=== PATIENT | female | born 1975 | race Caucasian/White ===

== ENCOUNTER 2016-04-28 16:17 | Emergency (ER) | payer OTHER ==
[2016-04-28 16:57] LABS: BILIRUBIN NEGATIVE (NEGATIVE); BLOOD TRACE-INTACT Ery/uL (NEGATIVE); CLARITY CLEAR (CLEAR); COLOR STRAW (YELLOW); GLUCOSE (U) 3+ mg/dL (NORMAL); KETONE (U) NEGATIVE (NEGATIVE); LEUKOCYTES NEGATIVE Leu/uL (NEGATIVE); NITRITE NEGATIVE (NEGATIVE); PROTEIN NEGATIVE (NEGATIVE); UROBILINOGEN 0.2 mg/dL (0.2-1.0); pH 5.5 (5.0-9.0)
[2016-04-28 17:00] LABS: URINARY RBC RARE
[2016-04-28 17:33] LABS: EOSINOPHIL 1.9 % (0-5); HCT 33.2 % (37.0-47.0); HGB 10.8 g/dl (12.5-16.0); MCHC 32.5 g/dL (32.0-36.0); MONOCYTE 14.4 % (0-12); MPV 10.9 fL (6.0-9.5); NEUTROPHIL 57.7 % (41-80); RDW 14.8 % (11.5-14.0)
[2016-04-28 17:36] LABS: PLT 50 K/uL (150-400)
[2016-04-28 17:43] LABS: ALBUMIN 3.2 g/dL (3.5-5.0); BILIRUBIN - TOTAL 0.9 mg/dL (0.1-1.0); CREATININE 0.5 mg/dL (0.5-1.0); GLOBULIN (CALCULATION) 2.1 g/dL (2.2-4.2); POTASSIUM 3.5 mmol/L (3.5-5.1); TOTAL PROTEIN 5.3 g/dL (6.4-8.3)
== END 2016-04-28 18:26 | disposition home or self-care (01) ==
LOC: FER 16:17
PROVIDERS: Emergency Medicine
DX: M54.5 Low back pain (principal); E11.65 Type 2 diabetes mellitus with hyperglycemia; D61.818 Other pancytopenia; R82.90 Unspecified abnormal findings in urine; F17.210 Nicotine dependence, cigarettes, uncomplicated; Z87.442 Personal history of urinary calculi; Z88.0 Allergy status to penicillin; Z88.1 Allergy status to other antibiotic agents; Z88.2 Allergy status to sulfonamides; Z88.5 Allergy status to narcotic agent; Z88.6 Allergy status to analgesic agent; Z88.8 Allergy status to other drugs, medicaments and biological substances; Z90.89 Acquired absence of other organs; Z90.49 Acquired absence of other specified parts of digestive tract
CPT/HCPCS: 36415; 80053; 81001; 85025; 87076; 87088; 87186

== ENCOUNTER 2016-05-02 17:10 | Emergency (ER) | payer OTHER ==
[2016-05-02 18:22] LABS: BILIRUBIN NEGATIVE (NEGATIVE); BLOOD NEGATIVE Ery/uL (NEGATIVE); CLARITY CLEAR (CLEAR); COLOR YELLOW (YELLOW); GLUCOSE (U) 3+ mg/dL (NORMAL); KETONE (U) NEGATIVE (NEGATIVE); LEUKOCYTES NEGATIVE Leu/uL (NEGATIVE); NITRITE NEGATIVE (NEGATIVE); PROTEIN NEGATIVE (NEGATIVE); UROBILINOGEN >=8.0 mg/dL (0.2-1.0); pH 6.5 (5.0-9.0)
[2016-05-02 18:50] LABS: BASOPHIL 1.3 % (0-2); EOSINOPHIL 3.8 % (0-5); HCT 37.4 % (37.0-47.0); HGB 12.2 g/dl (12.5-16.0); LYMPHOCYTE 13.8 % (15-48); MCH 27.2 pg (25.0-31.0); MCHC 32.6 g/dL (32.0-36.0); MCV 83.5 fL (78.0-100.0); MONOCYTE 11.3 % (0-12); MPV 11.8 fL (6.0-9.5); NEUTROPHIL 69.8 % (41-80); RBC 4.48 M/uL (4.20-5.40); RDW 14.7 % (11.5-14.0)
[2016-05-02 18:53] LABS: PLT 45 K/uL (150-400); WBC 1.6 K/uL (4.0-10.5)
[2016-05-02 19:02] LABS: ALBUMIN 3.2 g/dL (3.5-5.0); BILIRUBIN - TOTAL 1.7 mg/dL (0.1-1.0); CREATININE 0.5 mg/dL (0.5-1.0); GLOBULIN (CALCULATION) 2.6 g/dL (2.2-4.2); POTASSIUM 3.5 mmol/L (3.5-5.1); TOTAL PROTEIN 5.8 g/dL (6.4-8.3)
== END 2016-05-02 21:38 | disposition home or self-care (01) ==
LOC: FER 17:10
PROVIDERS: Nurse Practitioner Family
DX: N39.0 Urinary tract infection, site not specified (principal); R05 Cough; E11.9 Type 2 diabetes mellitus without complications; Z88.0 Allergy status to penicillin; Z88.1 Allergy status to other antibiotic agents; Z88.2 Allergy status to sulfonamides; Z88.5 Allergy status to narcotic agent; Z88.6 Allergy status to analgesic agent; Z79.4 Long term (current) use of insulin
CPT/HCPCS: 36415; 71020; 80053; 81003; 82150; 83690; 85025; J1170

== ENCOUNTER 2016-05-03 17:00 | Emergency (ER) | payer OTHER | END 2016-05-03 18:15 | disposition home or self-care (01) | LOC: FER 17:00 | DX: N39.0 Urinary tract infection, site not specified (principal); E11.9 Type 2 diabetes mellitus without complications; F17.210 Nicotine dependence, cigarettes, uncomplicated; Z86.14 Personal history of Methicillin resistant Staphylococcus aureus infection; Z88.0 Allergy status to penicillin; Z88.1 Allergy status to other antibiotic agents; Z88.2 Allergy status to sulfonamides; Z88.5 Allergy status to narcotic agent; Z88.6 Allergy status to analgesic agent; Z88.8 Allergy status to other drugs, medicaments and biological substances; Z79.84 Long term (current) use of oral hypoglycemic drugs | CPT/HCPCS: J2175 ==

== ENCOUNTER 2016-05-04 20:52 | Emergency (ER) | payer OTHER ==
[2016-05-04 21:49] LABS: BILIRUBIN NEGATIVE (NEGATIVE); BLOOD TRACE-INTACT Ery/uL (NEGATIVE); COLOR YELLOW (YELLOW); GLUCOSE (U) 3+ mg/dL (NORMAL); KETONE (U) NEGATIVE (NEGATIVE); LEUKOCYTES NEGATIVE Leu/uL (NEGATIVE); NITRITE NEGATIVE (NEGATIVE); PROTEIN NEGATIVE (NEGATIVE); UROBILINOGEN 0.2 mg/dL (0.2-1.0)
[2016-05-04 21:52] LABS: CLARITY SLIGHTLY HAZY (CLEAR)
[2016-05-04 22:05] LABS: BASOPHIL 0.7 % (0-2); HGB 11.2 g/dl (12.5-16.0); MCV 84.3 fL (78.0-100.0); MONOCYTE 12.5 % (0-12); MPV 12.2 fL (6.0-9.5); NEUTROPHIL 61.8 % (41-80); RBC 4.15 M/uL (4.20-5.40); RDW 14.8 % (11.5-14.0)
[2016-05-04 22:18] LABS: LACTIC ACID 3.6 mmol/L (0.5-2.2)
[2016-05-04 22:27] LABS: WBC 1.5 K/uL (4.0-10.5)
[2016-05-04 22:33] LABS: ALBUMIN 3.3 g/dL (3.5-5.0); BILIRUBIN - TOTAL 1.1 mg/dL (0.1-1.0); CREATININE 0.5 mg/dL (0.5-1.0); GLOBULIN (CALCULATION) 2.6 g/dL (2.2-4.2); POTASSIUM 4.2 mmol/L (3.5-5.1); TOTAL PROTEIN 5.9 g/dL (6.4-8.3)
[2016-05-04 22:47] LABS: PLT 57 K/uL (150-400)
== END 2016-05-04 23:22 | disposition home or self-care (01) ==
LOC: FER 20:52
PROVIDERS: Nurse Practitioner
DX: R10.32 Left lower quadrant pain (principal); R11.2 Nausea with vomiting, unspecified; R05 Cough; E11.9 Type 2 diabetes mellitus without complications; Z79.4 Long term (current) use of insulin
CPT/HCPCS: 36415; 80053; 81001; 83605; 85025; J2270; J2405

== ENCOUNTER 2016-05-06 18:14 | Emergency (ER) | payer OTHER ==
[2016-05-06 19:39] LABS: BILIRUBIN 2+ mg/dL (NEGATIVE); BLOOD NEGATIVE Ery/uL (NEGATIVE); CLARITY CLEAR (CLEAR); COLOR STRAW (YELLOW); GLUCOSE (U) 2+ mg/dL (NORMAL); KETONE (U) TRACE mg/dL (NEGATIVE); LEUKOCYTES NEGATIVE Leu/uL (NEGATIVE); NITRITE NEGATIVE (NEGATIVE); PROTEIN 1+ mg/dL (NEGATIVE); SPECIFIC GRAVITY >=1.030 (1.001-1.030); pH 6.5 (5.0-9.0)
[2016-05-06 19:44] LABS: URINARY RBC RARE
[2016-05-06 19:45] LABS: BACTERIA 1+; CALCIUM OXALATE CRYSTALS MODERATE; MUCOUS MODERATE; SQUAMOUS EPITHELIAL CELLS 20-50
[2016-05-06 19:52] LABS: BASOPHIL 0.8 % (0-2); EOSINOPHIL 3.3 % (0-5); HCT 34.8 % (37.0-47.0); HGB 11.1 g/dl (12.5-16.0); LYMPHOCYTE 19.7 % (15-48); MCH 26.8 pg (25.0-31.0); MCHC 31.9 g/dL (32.0-36.0); MCV 84.1 fL (78.0-100.0); MONOCYTE 10.7 % (0-12); MPV 11.2 fL (6.0-9.5); NEUTROPHIL 65.5 % (41-80); RBC 4.14 M/uL (4.20-5.40); RDW 14.9 % (11.5-14.0)
[2016-05-06 19:57] LABS: WBC 1.2 K/uL (4.0-10.5)
[2016-05-06 19:58] LABS: PLT 52 K/uL (150-400)
[2016-05-06 20:15] LABS: ALBUMIN 3.4 g/dL (3.5-5.0); BILIRUBIN - TOTAL 0.9 mg/dL (0.1-1.0); CREATININE 0.6 mg/dL (0.5-1.0); GLOBULIN (CALCULATION) 2.2 g/dL (2.2-4.2); POTASSIUM 3.2 mmol/L (3.5-5.1); TOTAL PROTEIN 5.6 g/dL (6.4-8.3)
== END 2016-05-06 22:30 | disposition home or self-care (01) ==
LOC: FER 18:14
PROVIDERS: Nurse Practitioner Family
DX: R30.0 Dysuria (principal); E11.9 Type 2 diabetes mellitus without complications; Z88.8 Allergy status to other drugs, medicaments and biological substances; Z88.0 Allergy status to penicillin; Z88.1 Allergy status to other antibiotic agents; Z88.2 Allergy status to sulfonamides; Z88.6 Allergy status to analgesic agent; Z79.4 Long term (current) use of insulin; Z79.84 Long term (current) use of oral hypoglycemic drugs; Z90.49 Acquired absence of other specified parts of digestive tract; Z98.890 Other specified postprocedural states
CPT/HCPCS: 36415; 80053; 81001; 82150; 83690; 85025; 87088; J1170; J1885; J2405

== ENCOUNTER 2016-05-08 18:02 | Day surgery (SDCO) | payer OTHER ==
[~2016-05-08] VITALS: Ht 157.5 cm; Wt 98.7 kg
[2016-05-08 19:51] LABS: BASOPHIL 0 % (0-2); EOSINOPHIL 2.6 % (0-5); HCT 33.2 % (37.0-47.0); HGB 10.4 g/dl (12.5-16.0); LYMPHOCYTE 23.7 % (15-48); MCH 26.5 pg (25.0-31.0); MCHC 31.3 g/dL (32.0-36.0); MCV 84.7 fL (78.0-100.0); MONOCYTE 8.8 % (0-12); MPV 11.5 fL (6.0-9.5); NEUTROPHIL 64.9 % (41-80); PLT 50 K/uL (150-400); RBC 3.92 M/uL (4.20-5.40); RDW 14.9 % (11.5-14.0)
[2016-05-08 19:54] LABS: WBC 1.1 K/uL (4.0-10.5)
[2016-05-08 20:03] LABS: CREATININE 0.6 mg/dL (0.5-1.0); POTASSIUM 3.9 mmol/L (3.5-5.1)
[2016-05-08 20:10] LABS: BILIRUBIN NEGATIVE (NEGATIVE); BLOOD TRACE-INTACT Ery/uL (NEGATIVE); CLARITY CLEAR (CLEAR); COLOR YELLOW (YELLOW); GLUCOSE (U) 3+ mg/dL (NORMAL); KETONE (U) NEGATIVE (NEGATIVE); LEUKOCYTES TRACE Leu/uL (NEGATIVE); NITRITE NEGATIVE (NEGATIVE); PROTEIN NEGATIVE (NEGATIVE); UROBILINOGEN 0.2 mg/dL (0.2-1.0); pH 6.5 (5.0-9.0)
[2016-05-08 20:19] LABS: ANISOCYTOSIS SLIGHT; LYMPHOCYTE(M) 32 % (15-48); NEUTROPHILS(M) 68 % (41-80); POLYCHROMASIA SLIGHT
[2016-05-08 20:20] LABS: PLATELETS ON SMEAR DECREASED
[2016-05-08 20:21] LABS: AMYLASE 32 U/L (28-100); LIPASE 31 U/L (13-60)
[2016-05-08 20:21] LABS: BACTERIA TRACE
[2016-05-09 02:04] LABS: AMPHETAMINES NEGATIVE (NEGATIVE); BENZODIAZEPINES NEGATIVE (NEGATIVE); COCAINE NEGATIVE (NEGATIVE); MARIJUANA (THC) NEGATIVE (NEGATIVE)
[2016-05-09 02:05] LABS: BARBITURATES NEGATIVE (NEGATIVE); METHADONE NEGATIVE (NEGATIVE); TRICYCLIC ANTIDEPRESSANT NEGATIVE (NEGATIVE)
[2016-05-09 05:47] LABS: INR 1.38 (0.9-1.2); PROTHROMBIN TIME 16.5 SECONDS (11.7-14.0)
[2016-05-09 05:58] LABS: ALBUMIN 3.2 g/dL (3.5-5.0); BILIRUBIN - TOTAL 1.2 mg/dL (0.1-1.0); CREATININE 0.5 mg/dL (0.5-1.0); GLOBULIN (CALCULATION) 1.9 g/dL (2.2-4.2); MAGNESIUM 1.66 mg/dL (1.40-2.10); PHOSPHORUS 3.1 mg/dL (2.7-4.5); POTASSIUM 3.7 mmol/L (3.5-5.1); TOTAL PROTEIN 5.1 g/dL (6.4-8.3)
--- NOTE | 2016-05-09 10:25 | NUR ---
PATIENT REQUESTED AND RECEIVED AFTER VERBAL OK FROM MD, PE[employer] PRIOR TO DISCHARGE HOME. PATIENT WAS ABLE TO TOLERATE THIS PO INTAKE WITH NO REPORTED NAUSEA/VOMITING
[2016-05-09] MEDS ORDERED: HUMALOG SQ (11:00)
[2016-05-09] MEDS ORDERED: LEVEMIR VI100 UNITS/ SQ (11:00)
[2016-05-09] MEDS ORDERED: DESYREL50 MG PO (11:01)
[2016-05-09] MEDS ORDERED: OXYCODONE HCL5 MG PO (11:01)
[2016-05-09] MEDS ORDERED: ZOFRAN4 MG PO (11:02)
[2016-05-09] MEDS ORDERED: PHENERGAN25 M1 PO (11:02)
== END 2016-05-09 10:44 | disposition home or self-care (01) ==
LOC: FER 18:02 → FMS 23:50
PROVIDERS: Emergency Medicine Emergency Medical Services; Internal Medicine; ADMIT Internal Medicine
DX: R11.2 Nausea with vomiting, unspecified (principal); K74.60 Unspecified cirrhosis of liver; D61.818 Other pancytopenia; K31.84 Gastroparesis; E11.9 Type 2 diabetes mellitus without complications; R16.1 Splenomegaly, not elsewhere classified; Z90.49 Acquired absence of other specified parts of digestive tract; Z90.710 Acquired absence of both cervix and uterus
CPT/HCPCS: 36415; 74022; 80048; 80053; 80305; 81001; 82140; 82150; 83036; 83605; 83690; 83735; 84100; 84484; 85025; 85610; 86140; 93005; 94010; 96372; G0378; J1170; J1815; J2405; Q9967

== ENCOUNTER 2016-05-16 16:35 | Emergency (ER) | payer OTHER ==
[~2016-05-16 16:35] MED LIST: DESYREL50 MG PO; HUMALOG SQ; LEVEMIR VI100 UNITS/ SQ; OXYCODONE HCL5 MG PO; PHENERGAN25 M1 PO; ZOFRAN4 MG PO
== END 2016-05-16 16:50 | disposition left against medical advice (07) ==
LOC: FER 16:35
DX: R10.9 Unspecified abdominal pain (principal); Z53.8 Procedure and treatment not carried out for other reasons

== ENCOUNTER 2016-11-12 18:30 | Emergency (ER) | payer OTHER | END 2016-11-12 22:41 | disposition home or self-care (01) | LOC: FER 18:30 | DX: R51 Headache (principal); E11.9 Type 2 diabetes mellitus without complications; E11.40 Type 2 diabetes mellitus with diabetic neuropathy, unspecified; E11.43 Type 2 diabetes mellitus with diabetic autonomic (poly)neuropathy; K31.84 Gastroparesis; F17.200 Nicotine dependence, unspecified, uncomplicated; Z90.49 Acquired absence of other specified parts of digestive tract; Z90.710 Acquired absence of both cervix and uterus; Z88.0 Allergy status to penicillin; Z88.1 Allergy status to other antibiotic agents; Z88.8 Allergy status to other drugs, medicaments and biological substances; Z88.6 Allergy status to analgesic agent; Z88.5 Allergy status to narcotic agent; Z79.4 Long term (current) use of insulin; Z79.899 Other long term (current) drug therapy | CPT/HCPCS: J2270 ==